=== PATIENT | female | born 1995 | race Caucasian/White ===

== ENCOUNTER → 2016-09-29 | Outpatient (REF) | payer OTHER ==
[~2016-09-29] MED LIST: ACET-654 PO; CIPRO OR; DOCU10ELUD PO; FERR325T3 PO; IBUP600T26 PO; MULTIVITAMIN OR; MULTTAB4 PO; NORCOTAB PO; SINGULAIR OR; VICO5TAB PO; VITA500C24 PO; YAZ OR; YAZ PO; ZOFRAN OR; ZYRTEC OR; ZYRTEC PO; singulair PO
== END ==
LOC: M SFHCWAGY 14:48
PROVIDERS: ATTEND Nurse Practitioner Family
DX: Z12.4 Encounter for screening for malignant neoplasm of cervix (principal); R87.612 Low grade squamous intraepithelial lesion on cytologic smear of cervix (LGSIL); Z11.3 Encounter for screening for infections with a predominantly sexual mode of transmission
CPT/HCPCS: 87491; 87591; G0123; G0463

== ENCOUNTER → 2016-11-23 | Outpatient (REF) | payer OTHER | LOC: M SFHCWAGY 11:54 | PROVIDERS: ATTEND Nurse Practitioner Women's Health | DX: R87.612 Low grade squamous intraepithelial lesion on cytologic smear of cervix (LGSIL) (principal) ==